=== PATIENT | male | born 1955 | race Caucasian/White ===

== ENCOUNTER → 2019-12-01 | Outpatient (CLI) | payer BC ==
--- NOTE | 2019-12-01 13:57 | REP ---
REASON: Patient has low pulse and history of peripheral vascular disease. PRIORS: None. RIGHT: Ankle-brachial index is 1.3. PEAK SYSTOLIC VELOCITY PHASICITY MACHINE SPECIALIST 124.4 cm/s Triphasic Profunda 73.8 cm/s Triphasic SFA proximal 105.4 cm/s Triphasic SFA mid 88.7 cm/s Triphasic SFA distal 92.2 cm/s Triphasic Popliteal 55.0 cm/s Triphasic HARISH proximal 60.7 cm/s Triphasic Tibioperoneal trunk 50.7 cm/s Triphasic RUN BOAT OPERATOR proximal 81.1 cm/s Triphasic RUN BOAT OPERATOR distal 72.6 cm/s Triphasic HARISH distal 65.1 cm/s Triphasic LEFT: The ankle-brachial index is 1.3. PEAK SYSTOLIC VELOCITY PHASICITY MACHINE SPECIALIST 119.4 cm/s Triphasic Profunda 85.1 cm/s Triphasic SFA proximal 140.3 cm/s Triphasic SFA mid 88.7 cm/s Triphasic SFA distal 78.1 cm/s Triphasic Popliteal 52.8 cm/s Triphasic HARISH proximal 61.8 cm/s Triphasic Tibioperoneal trunk 70.2 cm/s Triphasic RUN BOAT OPERATOR proximal 70.9 cm/s Triphasic RUN BOAT OPERATOR distal 64.5 cm/s Triphasic HARISH distal 53.4 cm/s Triphasic The technologist noted minimal plaque bilaterally. Electronically Signed by Darek Henriquez DO 12/01/2019 05:04 P
== END ==
LOC: M RAD 09:35
PROVIDERS: ATTEND Nurse Practitioner Family
DX: I70.203 Unspecified atherosclerosis of native arteries of extremities, bilateral legs (principal)